=== PATIENT | male | born 1965 | race Caucasian/White ===

== ENCOUNTER 2023-10-09 19:23 | Emergency (ER) | payer BC, SELFPAY ==
[2023-10-09 19:23] VITALS: BMI 33.6
[2023-10-09 19:25] VITALS: BP 182/111
--- NOTE | 2023-10-09 19:56 | ED.GENMED ---
History of Present Illness
General
Chief Complaint: Cardiac Symptoms
Source: patient
Exam Limitations: none
Time Seen by Provider: 10/09/23 19:40
Nursing documentation reviewed up to this point in time: agreed with
Travel History
Have you had any contact with someone who has COVID-19?: No
Do you have any symptoms of coronavirus? Fever > 100 degrees, chills, cough, shortness of breath, sore throat, loss of taste or smell, muscle aches, or headache?: No
History of Present Illness
History of Present Illness:
58 yr. old male presents to the ER for evaluation. Patient reports about 1 hour ago(6:45 pm ) he was walking at the top of the steps carrying laundry basket when he felt rapid heart rate /chest tightness.
Patient has a history of hypertension and high cholesterol but is not currently taking cholesterol medication. He also has hypothyroidism and takes Synthroid. He does not smoke.
He does report that he ate very poorly today and had 2 large coffees 1 earlier today and later in the evening.
No prior history of arrhythmia. No history of cardiovascular disease.
Past History
Past History
ED Past Medical History: GERD, Hypothyroidism and Psychiatric; Negative HTN, Hypercholesterolemia, IDDM or PR
ED Past Surgical History: Orthopedic
Social History
Tobacco: Smoker
Alcohol: None
Drug: None
Personal:
Living: with family
Employment: Employed
Family History
Family History: Other (Noncontributory)
Review of Systems
Review of Systems
Allergies reviewed?: Yes
All Other Systems: ROS reviewed and negative except as documented in HPI and ROS
Constitutional: Reports no symptoms; Denies fever, fatigue or chills
Respiratory: Reports trouble breathing; Denies cough
Cardiac: Reports chest pain and palpitations (Racing heart rate sensation)
ABD/GI: Reports no symptoms
Neurological: Reports no symptoms
Psychiatric: Reports no symptoms
Phy Exam
General Physical Exam
General Presentation: no apparent distress
General age: appears stated age
General Skin: warm and dry
General Habitus: normal
General Mental: alert
General Hydration: appears well hydrated
Cardiovascular Exam
Cardiovascular Exam: irregularly irregular and tachycardia
Pulmonary Exam
Pulmonary Exam: lungs clear and no respiratory distress
Neurological Exam
Neurological Exam: alert and oriented x3
Musculoskeletal Exam
Musculoskeletal Exam: full ROM
Skin Exam
Skin Exam: normal color and warm/dry
Psychiatric Exam
Psychiatric Exam: normal mood/affect
Scores
[id number] Score for Afib Stroke Risk
Age in Years (65=0, 65-74=1, >/=75=2): <65
Sex (Female=+1): Male
Congestive Heart Failure History (Yes=+1): No
Hypertension History (Yes=+1): Yes
Stroke/TIA/Thromboembolism History (Yes=+2): No
Vascular Disease History (Yes=+1): No
Diabetes Mellitus (Yes=+1): No
Score: 1
Anticoagulation Recommendations: Consider anticoagulation (as validated in nonvalvular fib)
Course
Orders/Labs/Results
Orders:
Orders
10/09/23 19:24
Electrocardiogram (*1) Urgent
Reason for Study: Chest Pain
EKG- Treatment ONCE
10/09/23 19:53
IV Insert/Care/Rem.- Treatment PRN
0.9% Sodium Chloride 1000 ml [Nss] 1,000 ml IV BOLUS
10/09/23 19:54
Cardiac Monitoring- Treatment ONCE
CR Chest - 2 Views Urgent
Comment:
Reason For Exam: sob
10/09/23 19:56
Diltiazem 125 mg/125 ml Nss [Cardizem] 125 mg in 125 ml IV NOW
Initial dose in mg/hr, then titrate:: 5
Titrate to keep:: Heart rate 80-100 bpm
Titrate by mg/hr:: 5 mg/hr
Frequency of titrations (minutes):: 15
Maximum dose in mg/hr:: 15
Diltiazem HCl [Cardizem] 10 mg IV NOW STA
10/09/23 20:33
Complete Blood Count/With Diff Urgent
Comprehensive Metabolic Panel Urgent
Free T4 Urgent
TSH Reflex To Free T4 Urgent
10/09/23 21:44
Electrocardiogram (*1) Stat
Reason for Study: Other
Other Reason for Exam: chest pain
EKG- Treatment ONCE
10/09/23 21:51
Apixaban [Eliquis] 5 mg PO NOW STA
Abnormal Lab Results
10/09/23
20:33
Absolute Lymphs (auto) 3.7 H 10^3/uL
(1.2-3.4)
Absolute Monos (auto) 0.9 H 10^3/uL
(0.1-0.6)
Glucose 105 H mg/dl
(70-99)
TSH (Reflex) 8.27 H uIU/ml
(0.47-4.68)
10/09/23 20:33
10/09/23 20:33
Vital Signs
Initial and Last Documented VS:
Initial Vital Signs
Temp Pulse Resp BP Pulse Ox
98.5 F 129 20 182/111 99
10/09/23 19:25 10/09/23 19:25 10/09/23 19:25 10/09/23 19:25 10/09/23 19:25
Last Documented Vital Signs
Temp Pulse Resp BP Pulse Ox
98.5 F 102 13 127/91 97
10/09/23 19:25 10/09/23 21:00 10/09/23 21:00 10/09/23 21:00 10/09/23 21:05
Power Generating Plant Operator consulted with Physician
Power Generating Plant Operator consulted with physician?: Yes
Name of Physician Consulted: Jabari
MDM/Problems Addressed
Differential Diagnosis Includes:
Not limited to arrhythmia A-fib
MDM/Problems Addressed:
Patient is a 58-year-old male who about 1 hour prior to arrival was walking up a flight of steps with a laundry basket and felt heart racing palpitation shortness of breath. Patient reports he felt his heart racing. Patient presents to the ER
rapid A-fib with a heart rate of 146 however nontoxic. No history of. He is not on blood thinners. Patient is on medication for hypertension including losartan and takes baby aspirin. He presents awake alert no acute distress. No prior history
of PR CAD. Case d/c with DR Barboza. Patient was given Cardizem bolus and drip.
2143: Patient converted normal sinus rhythm will obtain EKG, case d.c with DR Weiss will give dose of eliquis now and d/c with 5 mg bid . Will have patient hold his aspirin until seen by cardiology. In addition we will have patient's stop his
losartan and start Cardizem 120 mg CD close outpatient follow-up
*Pulse Oximetry
Patient hypoxic: no
*EKG
Interpreted by ED Provider?: Yes
Heart Rate: 146
Rate: tachycardiac
Rhythm: a-fib
Ischemia: non-specific ST changes
*Critical Care Note
Total Time (30-74mins, 75-104mins- exclusive of procedures): Not Applicable
ED Attending Note
-
Portions of this chart may have been created with voice recognition software.� Occasional wrong word or��sound alike� substitutions may have occurred due to the inherent limitations of voice recognition software.
Discharge Plan
Departure
Patient Disposition: Home (Routine Discharge)
Date of Disposition: 10/09/23
Time of Disposition: 22:17
Patient with high blood pressure during this ER visit?: Yes
Condition: Fair
Covid-19: Not Applicable
Discharge Problem:
Atrial fibrillation
Instructions: Atrial Fibrillation (DC)
Prescriptions:
New
diltiazem HCl [Cardizem CD] 120 mg capsule,extended release 24hr
120 mg PO DAILY Qty: 30 0RF
Eliquis 5 mg tablet
5 mg PO BID Qty: 60 0RF
No Action
aspirin 81 MG tablet,chewable
81 mg PO DAILY
penicillin V potassium 500 MG tablet
500 mg PO Q6 Qty: 28 0RF
omeprazole magnesium [Prilosec OTC] 20 MG tablet,delayed release (DR/EC)
20 mg PO DAILY Qty: 20 0RF
clindamycin HCl 300 MG capsule
300 mg PO TID Qty: 21 0RF
mupirocin 1 APPLIC ointment
1 applic topical TID Qty: 1 0RF
ciprofloxacin HCl [Cipro] 500 mg tablet
500 mg PO BID Qty: 14 0RF
tamsulosin [Flomax] 0.4 mg capsule
0.4 mg PO DAILY Qty: 10 0RF
levothyroxine [Synthroid] 125 mcg tablet
125 mcg PO DAILY Qty: 30 0RF
Referrals:
Chely Kim MD [Family Provider] -
Otoniel Weiss DO [Active] -
Activity Restrictions/Additional Instructions:
Stop Losartan and start Cardizem as discussed
Also you will need to start Eliquis 5 mg twice a day which is a blood thinner. These medications were sent to your pharmacy
STOP your Aspirin.
Follow-up with cardiology as discussed.
please call tomorrow to make an appointment as soon as possible. Return if any worsening of symptoms, if difficulty breathing, chest pain palpitations or any further concerns.
Also please follow-up with your family doctor for further evaluation of your thyroid level as it was abnormal here.
Interventions
Interventions:
*Risk Screen - Suicide Last Done: 10/09/23 19:25
*General Assessment Last Done: 10/09/23 21:05
*Neglect/Abuse Screening Last Done: 10/09/23 19:25
ED- Fall Risk Assessment Last Done: 10/09/23 19:25
*ED COVID-19 Vaccine History Last Done: 10/09/23 19:25
ED- Pulmonary Assessment Last Done: 10/09/23 21:05
ED- Cardiac Assessment Last Done: 10/09/23 21:05
[2023-10-09 20:39] VITALS: BP 168/120
[2023-10-09 20:51] LABS: % Basophils 0.7 % (0-2); % Eosinophils 2.3 % (0-6); % Immature Granulocytes 0.3 % (0-0.5); % Lymphocytes 35.9 % (20.5-51.1); % Monocytes 8.8 % (1.7-9.3); Absolute Basophils 0.1 10^3/uL (0-0.2); Absolute Eosinophils 0.2 10^3/uL (0-0.7); Absolute Lymphocytes 3.7 10^3/uL (1.2-3.4); Absolute Monocytes 0.9 10^3/uL (0.1-0.6); Absolute Neutrophils 5.3 10^3/uL (1.4-6.5); Hematocrit 43.8 % (39.0-52.0); Hemoglobin 15.6 g/dL (13.0-18.0); Mean Corp Hgb Conc. 35.6 g/dL (33.0-37.0); Mean Corpuscular Hgb 29.9 pg (27.0-31.0); Mean Corpuscular Volume 84.1 fL (80.0-94.0); Mean Platelet Volume 9.5 fL (7.4-10.4); Nucleated Red Blood Cells % 0 % (-); Platelet Count 267 10^3/uL (130-400); Red Blood Cell Count 5.21 10^6/uL (4.70-6.10); Red Cell Dist. Width 13.3 % (11.5-14.5); White Blood Cell Count 10.2 10^3/uL (4.8-10.8)
[2023-10-09] MEDS: CARDIZEM 10 MG IV (20:51)
[2023-10-09] MEDS: CARDIZEM 125 IV (20:52)
[2023-10-09] MEDS: NSS 1000 IV (20:56)
[2023-10-09 21:00] VITALS: BP 127/91
[2023-10-09 21:05] LABS: ALT (SGPT) 38 U/L (0-50); AST (SGOT) 33 U/L (17-59); Albumin 4.5 g/dl (3.5-5.0); Alkaline Phosphatase 80 U/L (38-126); Blood Urea Nitrogen 16 mg/dl (9-20); Carbon Dioxide 27 mmol/L (22-30); Chloride 106 mmol/L (98-107); Estimated Creatinine Clearance 92 ml/min; Glucose 105 mg/dl (70-99); Potassium 3.8 mmol/L (3.5-5.1); Sodium 140 mmol/L (135-145); Total Bilirubin 0.5 mg/dl (0.2-1.3); Total Protein 7.7 g/dl (6.3-8.2); eGFR > 60.00
[2023-10-09 21:35] LABS: TSH Reflex To Free T4 8.27 uIU/ml (0.47-4.68)
[2023-10-09 21:38] VITALS: BP 125/89
[2023-10-09 22:00] VITALS: BP 130/84
[2023-10-09 22:06] LABS: Free T4 1.04 ng/dl (0.78-2.19)
[2023-10-09 22:30] VITALS: BP 122/89
[2023-10-09] MEDS: ELIQUIS 5 MG PO (22:34)
== END 2023-10-09 22:53 | disposition home or self-care (01) ==
LOC: EMR 19:23
PROVIDERS: Nurse Practitioner; EMERGENCY PHYSICIAN Emergency Medicine; FAMILY PHYSICIAN Emergency Medicine
DX: R07.89 Other chest pain (principal); I48.91 Unspecified atrial fibrillation; I10 Essential (primary) hypertension; E03.9 Hypothyroidism, unspecified; K21.9 Gastro-esophageal reflux disease without esophagitis; F17.200 Nicotine dependence, unspecified, uncomplicated; Z79.899 Other long term (current) drug therapy; Z79.82 Long term (current) use of aspirin; Z88.5 Allergy status to narcotic agent
CPT/HCPCS: 99285; 96365; 71046; 80053; 84439; 84443; 85025; 93005

== ENCOUNTER → 2023-11-12 07:01 | Outpatient (REF) | payer BC, SELFPAY ==
[2023-11-12 10:06] LABS: HDL Cholesterol 43 mg/dl; LDL Cholesterol, Calculated 152 mg/dl; Total Cholesterol 219 mg/dl (50-199); Triglyceride 123 mg/dl (10-149); Very Low Density Lipoprotein 24 mg/dl (0-30)
[2023-11-12 10:18] LABS: % Basophils 0.5 % (0-2); % Eosinophils 1.6 % (0-6); % Immature Granulocytes 0.2 % (0-0.5); % Lymphocytes 30.8 % (20.5-51.1); % Monocytes 7.9 % (1.7-9.3); Absolute Eosinophils 0.1 10^3/uL (0-0.7); Absolute Lymphocytes 2.5 10^3/uL (1.2-3.4); Absolute Monocytes 0.7 10^3/uL (0.1-0.6); Absolute Neutrophils 4.8 10^3/uL (1.4-6.5); Hematocrit 45.2 % (39.0-52.0); Hemoglobin 15.3 g/dL (13.0-18.0); Mean Corp Hgb Conc. 33.8 g/dL (33.0-37.0); Mean Corpuscular Hgb 29.4 pg (27.0-31.0); Mean Corpuscular Volume 86.8 fL (80.0-94.0); Mean Platelet Volume 10.4 fL (7.4-10.4); Nucleated Red Blood Cells % 0 % (-); Platelet Count 246 10^3/uL (130-400); Red Blood Cell Count 5.21 10^6/uL (4.70-6.10); White Blood Cell Count 8.2 10^3/uL (4.8-10.8)
[2023-11-12 10:32] LABS: Urine Albumin Negative (Neg - Trace); Urine Bilirubin Negative (Negative); Urine Character Clear (Clear); Urine Color Yellow; Urine Glucose Negative (Negative); Urine Ketone Trace (Negative); Urine Leukocyte Negative (Negative); Urine Nitrite Negative (Negative); Urine Occult Blood Negative (Negative); Urine Urobilinogen Negative (Neg - 1+)
[2023-11-12 10:35] LABS: PSA, Total - Screen 0.46 ng/ml (0.0-4.0); TSH Reflex To Free T4 3.42 uIU/ml (0.47-4.68)
[2023-11-12 12:49] LABS: Glycohemoglobin (HgbA1c) 5.8 % (4.0-5.6)
== END ==
LOC: REG 07:01
PROVIDERS: ATTENDING PHYSICIAN Emergency Medicine
DX: Z00.00 Encounter for general adult medical examination without abnormal findings (principal); K21.9 Gastro-esophageal reflux disease without esophagitis; E03.9 Hypothyroidism, unspecified; E78.00 Pure hypercholesterolemia, unspecified; I48.0 Paroxysmal atrial fibrillation; I10 Essential (primary) hypertension
CPT/HCPCS: 36415; 80061; 81003; 83036; 84443; 85025; G0103

== ENCOUNTER → 2023-11-18 14:30 | Outpatient (REF) | payer BC, SELFPAY | LOC: DHCBC MAIN 14:30 | PROVIDERS: ATTENDING PHYSICIAN Nurse Practitioner Gerontology; FAMILY PHYSICIAN Emergency Medicine | DX: R07.89 Other chest pain (principal); I48.0 Paroxysmal atrial fibrillation; I77.810 Thoracic aortic ectasia | CPT/HCPCS: 93306 ==

== ENCOUNTER → 2023-11-25 07:11 | Outpatient (REF) | payer BC, SELFPAY | LOC: DHCBC/DCA 07:11 | PROVIDERS: ATTENDING PHYSICIAN Nurse Practitioner Gerontology; FAMILY PHYSICIAN Emergency Medicine | DX: R07.89 Other chest pain (principal); I48.0 Paroxysmal atrial fibrillation | CPT/HCPCS: 78452; 93017; A9500; J2785 ==

== ENCOUNTER 2024-09-21 06:31 | Day surgery (SDC) | payer BC, SELFPAY | END 2024-09-21 16:18 | disposition home or self-care (01) | LOC: GI 06:31 | PROVIDERS: ATTENDING PHYSICIAN Internal Medicine Gastroenterology | DX: Z12.11 Encounter for screening for malignant neoplasm of colon (principal); D12.3 Benign neoplasm of transverse colon; D12.5 Benign neoplasm of sigmoid colon; K57.30 Diverticulosis of large intestine without perforation or abscess without bleeding; K29.70 Gastritis, unspecified, without bleeding; K22.89 Other specified disease of esophagus; K44.9 Diaphragmatic hernia without obstruction or gangrene; K31.89 Other diseases of stomach and duodenum; Q40.2 Other specified congenital malformations of stomach; R13.10 Dysphagia, unspecified; Z86.0101 Personal history of adenomatous and serrated colon polyps | CPT/HCPCS: 45380; 43239; 88305 ==

== ENCOUNTER → 2024-11-09 11:34 | Outpatient (REF) | payer BC, SELFPAY | LOC: RAD 11:34 | PROVIDERS: ATTENDING PHYSICIAN Nurse Practitioner Family | DX: M54.6 Pain in thoracic spine (principal) | CPT/HCPCS: 72072 ==

== ENCOUNTER 2024-12-13 01:20 | Emergency (ER) | payer BC, SELFPAY ==
[2024-12-13 01:23] VITALS: BP 147/99
--- NOTE | 2024-12-13 02:11 | ED.GENMED ---
History of Present Illness
General
Chief Complaint: Musculo-Skeletal Complaint
Time Seen by Provider: 12/13/24 02:11
History of Present Illness
History of Present Illness:
TIME OF INITIAL ENCOUNTER: 2:10 AM
HPI: About 5 hours ago, the patient struck the ulnar aspect of his right hand on machinery at work. He was able to ride his motorcycle home but when he was in bed he started having more of a significant pain that radiated into the wrist. He
declines analgesia as he has history of substance abuse in the past. He is on Eliquis.
EXAM:
GENERAL: Well appearing in no distress
HEENT: Moist oral mucosa
NEUROLOGIC: Excellent strength all extremities, no obvious coordination deficits
PSYCHIATRIC: Appropriate mental status, normal insight and judgement
EXTREMITIES: There is some mild tenderness to the right fifth metacarpal but excellent active range of motion, there is no laceration
SKIN: No rash, no lesions
NUMBER AND COMPLEXITY OF PROBLEMS ADDRESSED AT THE ENCOUNTER
� Chronic conditions affecting care: A-fib, high blood pressure, history of subs abuse
� Acute Exacerbation and/or Progression of Chronic Illness: This is an acute problem
� Differential Diagnosis includes: Hand fracture, wrist fracture, contusion
AMOUNT AND/OR COMPLEXITY OF DATA TO BE REVIEWED AND ANALYZED
� I performed an independent evaluation of and my interpretation is:
EKG:
CT:
X-rays: X-rays personally reviewed and I see no evidence of fracture
Laboratory Studies:
Other:
� Review of other/old records: I reviewed records, the patient had colonoscopy in September 2024
� Clinical information was obtained by an independent historian: None needed
� Prescriptions/Medications Considered but not given: Offered and considered analgesia however the patient is on Eliquis and aspirin and does not want any NSAIDs
� Further testing considered but not performed:
RISK OF COMPLICATIONS AND/OR MORBIDITY OR MORTALITY OF PATIENT MANAGEMENT
� Social determinants of health affecting care: Lives at home, works as a metal labor
� Discussion with other providers:
� Escalation of care including admission/observation vs risk of discharge considered: I see no evidence of fracture on x-ray. Placed in splint. Gave contact information for Ortho.
ANY OTHER UPDATES:
Past History
Past History
ED Past Medical History: GERD, Hypothyroidism and Psychiatric; Negative HTN, Hypercholesterolemia, IDDM or CA
ED Past Surgical History: Orthopedic
Social History
Tobacco: Smoker
Alcohol: None
Drug: None
Personal:
Living: with family
Employment: Employed
Family History
Family History: Other (Noncontributory)
Phy Exam
Physical Exam
Physical Exam:
See HPI
Course
Orders/Labs/Results
Orders:
Orders
12/13/24 01:27
CR Hand - Right Min 3 Views Urgent
Comment:
Reason For Exam: pain
12/13/24 02:19
Splints/Slings/Crut- Treatment ONCE
Location: Right
Type of Splint: [place] Wrist
Vital Signs
Initial and Last Documented VS:
Initial Vital Signs
Pulse Resp BP Pulse Ox
64 18 147/99 97
12/13/24 01:23 12/13/24 01:23 12/13/24 01:23 12/13/24 01:23
Last Documented Vital Signs
Pulse Resp BP Pulse Ox
64 18 147/99 97
12/13/24 01:23 12/13/24 01:23 12/13/24 01:23 12/13/24 01:23
*Critical Care Note
Total Time (30-74mins, 75-104mins- exclusive of procedures): Not Applicable
ED Attending Note
-
Portions of this chart may have been created with voice recognition software.� Occasional wrong word or��sound alike� substitutions may have occurred due to the inherent limitations of voice recognition software.
Discharge Plan
Departure
Patient Disposition: Home (Routine Discharge)
Date of Disposition: 12/13/24
Time of Disposition: 02:18
Patient with high blood pressure during this ER visit?: Yes
Discharge Problem:
Contusion of hand
Instructions: Contusion (DC), BLOOD PRESSURE
Prescriptions:
No Action
aspirin 81 MG tablet,chewable
81 mg PO DAILY
penicillin V potassium 500 MG tablet
500 mg PO Q6 Qty: 28 0RF
omeprazole magnesium [Prilosec OTC] 20 MG tablet,delayed release (DR/EC)
20 mg PO DAILY Qty: 20 0RF
clindamycin HCl 300 MG capsule
300 mg PO TID Qty: 21 0RF
mupirocin 1 APPLIC ointment
1 applic topical TID Qty: 1 0RF
ciprofloxacin HCl [Cipro] 500 mg tablet
500 mg PO BID Qty: 14 0RF
tamsulosin [Flomax] 0.4 mg capsule
0.4 mg PO DAILY Qty: 10 0RF
levothyroxine [Synthroid] 125 mcg tablet
125 mcg PO DAILY Qty: 30 0RF
diltiazem HCl [Cardizem CD] 120 mg capsule,extended release 24hr
120 mg PO DAILY Qty: 30 0RF
Eliquis 5 mg tablet
5 mg PO BID Qty: 60 0RF
Referrals:
Jules Garibay MD [Active] - Follow up in 2-3 days
Activity Restrictions/Additional Instructions:
I see no clear sign of fracture on the x-ray. X-rays will be read by radiologist tomorrow. If your symptoms persist or you have ongoing concerns, I have given you the contact information for Dr. Garibay that you could follow-up with (orthopedics).
Tylenol would be safest for pain.
Interventions
Interventions:
*Risk Screen - Suicide Last Done: 12/13/24 01:23
*General Assessment Last Done: 12/13/24 01:23
*Neglect/Abuse Screening Last Done: 12/13/24 01:23
*ED COVID-19 Vaccine History Last Done: 12/13/24 01:23
Discharge Date and Time
Print Language: PASHTO
[2024-12-13 02:35] VITALS: BP 144/75
== END 2024-12-13 02:40 | disposition home or self-care (01) ==
LOC: EMR 01:20
PROVIDERS: EMERGENCY PHYSICIAN Emergency Medicine
DX: S60.221A Contusion of right hand, initial encounter (principal); W22.8XXA Striking against or struck by other objects, initial encounter; K21.9 Gastro-esophageal reflux disease without esophagitis; E03.9 Hypothyroidism, unspecified; F17.200 Nicotine dependence, unspecified, uncomplicated; Z79.01 Long term (current) use of anticoagulants
CPT/HCPCS: 99283; 29125; 73130

== ENCOUNTER 2024-12-14 06:21 | Day surgery (SDC) | payer BC, SELFPAY ==
[2024-12-14 10:38] VITALS: BMI 30.1
[2024-12-14 10:39] VITALS: BMI 30.1
[2024-12-14 10:40] VITALS: BP 141/91
[2024-12-14 14:40] VITALS: BP 110/73
[2024-12-14 14:45] VITALS: BP 106/80
[2024-12-14 15:00] VITALS: BP 114/95
== END 2024-12-14 15:23 | disposition home or self-care (01) ==
LOC: GI 06:21
PROVIDERS: ATTENDING PHYSICIAN Internal Medicine Gastroenterology
DX: K31.89 Other diseases of stomach and duodenum (principal); K31.7 Polyp of stomach and duodenum; Q45.3 Other congenital malformations of pancreas and pancreatic duct; K86.9 Disease of pancreas, unspecified; R93.3 Abnormal findings on diagnostic imaging of other parts of digestive tract; Z79.01 Long term (current) use of anticoagulants
CPT/HCPCS: 43254; 43259; 88305

== ENCOUNTER → 2025-01-11 07:05 | Outpatient (REF) | payer BC, SELFPAY ==
[2025-01-11 08:06] LABS: % Basophils 0.6 % (0-2); % Eosinophils 2.3 % (0-6); % Immature Granulocytes 0.1 % (0-0.5); % Monocytes 8.4 % (1.7-9.3); % Neutrophils 50.6 % (42.2-75.2); Absolute Eosinophils 0.2 10^3/uL (0-0.7); Absolute Lymphocytes 2.7 10^3/uL (1.2-3.4); Absolute Monocytes 0.6 10^3/uL (0.1-0.6); Absolute Neutrophils 3.6 10^3/uL (1.4-6.5); Hematocrit 41.6 % (39.0-52.0); Hemoglobin 14.1 g/dL (13.0-18.0); Mean Corp Hgb Conc. 33.9 g/dL (33.0-37.0); Mean Corpuscular Hgb 29.4 pg (27.0-31.0); Mean Corpuscular Volume 86.7 fL (80.0-94.0); Mean Platelet Volume 9.7 fL (7.4-10.4); Nucleated Red Blood Cells % 0 % (-); Platelet Count 211 10^3/uL (130-400); Red Cell Dist. Width 13.2 % (11.5-14.5); White Blood Cell Count 7.1 10^3/uL (4.8-10.8)
[2025-01-11 08:28] LABS: ALT (SGPT) 23 U/L (0-50); AST (SGOT) 27 U/L (17-59); Albumin 4.7 g/dl (3.5-5.0); Alkaline Phosphatase 53 U/L (38-126); Blood Urea Nitrogen 22 mg/dl (9-20); Calcium 9.4 mg/dl (8.4-10.2); Carbon Dioxide 27 mmol/L (22-30); Chloride 108 mmol/L (98-107); Glucose 92 mg/dl (70-99); HDL Cholesterol 43 mg/dl; LDL Cholesterol, Calculated 133 mg/dl; Potassium 4.4 mmol/L (3.5-5.1); Sodium 142 mmol/L (135-145); Total Bilirubin 1.2 mg/dl (0.2-1.3); Total Cholesterol 199 mg/dl (50-199); Total Protein 7.5 g/dl (6.3-8.2); Triglyceride 115 mg/dl (10-149); Very Low Density Lipoprotein 23 mg/dl (0-30); eGFR > 60.00
[2025-01-11 08:54] LABS: PSA, Total - Screen 1.62 ng/ml (0.0-4.0); TSH Reflex To Free T4 1.52 uIU/ml (0.47-4.68)
[2025-01-11 09:04] LABS: Urine Albumin Negative (Neg - Trace); Urine Bilirubin Negative (Negative); Urine Character Clear (Clear); Urine Color Yellow; Urine Glucose Negative (Negative); Urine Ketone Negative (Negative); Urine Leukocyte Negative (Negative); Urine Nitrite Negative (Negative); Urine Occult Blood Negative (Negative); Urine Specific Gravity 1.015 (<1.030); Urine Urobilinogen Negative (Neg - 1+); Urine pH 6.5 (5.0-9.0)
[2025-01-11 10:44] LABS: Glycohemoglobin (HgbA1c) 5.3 % (4.0-5.6)
== END ==
LOC: REG 07:05
PROVIDERS: ATTENDING PHYSICIAN Emergency Medicine
DX: Z00.00 Encounter for general adult medical examination without abnormal findings (principal)
CPT/HCPCS: 36415; 80053; 80061; 81003; 83036; 84443; 85025; G0103

== ENCOUNTER → 2025-06-04 07:29 | Outpatient (REF) | payer BC, SELFPAY | LOC: REG 07:29 | PROVIDERS: ATTENDING PHYSICIAN Physician Assistant Medical | DX: Z12.5 Encounter for screening for malignant neoplasm of prostate (principal) | CPT/HCPCS: 36415; 84153; 84154 ==